=== PATIENT | female | born 1955 | race Caucasian/White ===

== ENCOUNTER 2016-10-17 01:07 | Observation (INO) | payer OTHER, MEDICARE ==
[~2016-10-17] VITALS: Ht 160 cm; Wt 86.8 kg
[~2016-10-17 01:07] MED LIST: ADVAIR HFA120 INHALA IH; ALEVE220 M2 PO; AZITHROMYCIN500 M1 PO; BREO ELLIPTA I1 EACH IH; BUPROPION HCL100 MG PO; CARDIZEM CD180 MG PO; CARDIZEM120 MG PO; COMPAZINE10 MG PO; DALIRESP500 MCG PO; DELTASONE20 M1 PO; DOCUSATE SODIU100 MG PO; DOXYCYCLINE HY100 MG PO; GAS-X80 MG PO; KLOR-CON M1010 MEQ PO; LASIX20 MG PO; LASIX40 MG PO; LOMOTIL TABLET1 EACH PO; METOPROLOL SUCC50 MG PO; MIRALAX17 GM PO; NATURAL BALANCE15 ML BOTH EYES; NICODERM CQ1 EAC2 TD; OXYGEN MC; PREDNISONE5 MG PO; PROAIR HFA8.5 GM IH; PROTONIX40 MG PO; RANITIDINE HCL300 MG PO; SPIRIVA1 INHALATI IH; THEO-24200 MG PO; THEO-DUR,THEOC200 MG PO; THEOPHYLLINE400 MG PO; TYLENOL EXTRA500 MG PO; ZOFRAN8 MG PO; [UNRECOGNIZED DRUG - OTHER] PR
[2016-10-17] MEDS ORDERED: PRAVACHOL40 MG PO (01:26)
[2016-10-17 02:01] LABS: HEMATOCRIT 36.4 % (36.0-46.0); MCH 27.6 PG (29.0-34.0); MCHC 31.6 G/DL (30.0-36.0); MCV 87.5 FL (83-99); MEAN PLAT.VOLUME 9.9 uM^3 (9.5-12.4); PLATELET COUNT 345 K/uL (156-360); RBC DIS.WIDTH-CV 14.1 % (11.8-14.6); RBC DIS.WIDTH-SD 45.5 % (39-53); RED BLOOD COUNT 4.16 M/uL (3.80-5.20); WHITE BLOOD COUNT 12.3 K/uL (4.1-10.2)
[2016-10-17 02:12] LABS: ADD MIUA? YES; BILIRUBIN NEGATIVE; BLOOD NEGATIVE; COLOR YELLOW ((YELLOW)); GLUCOSE (STRIP) NEGATIVE; KETONES NEGATIVE; LEUKOCYTES TRACE; NITRITE NEGATIVE; PROTEIN (STRIP) 30; SPECIFIC GRAVITY 1.014 (1.000-1.030); UROBILINOGEN 0.2 MG/DL (0.2-1.0)
[2016-10-17 02:16] LABS: BACTERIA NONE SEEN /HPF; EPITHELIAL CELLS 1+ /HPF; MUCUS TRACE /LPF; RED BLOOD CELLS 0-5 /HPF (0-5); UCUL ADDED? NO; WHITE BLOOD CELLS 0-5 /HPF (0-5)
[2016-10-17 02:43] LABS: CHLORIDE 101 mEq/L (99-109); POTASSIUM 4.2 mEq/L (3.7-5.4); SODIUM 141 mEq/L (136-147)
[2016-10-17 02:45] LABS: GLUCOSE 136 mg/dL (70-99)
[2016-10-17 02:47] LABS: ANION GAP 13 MEQ/L (2-14); TOTAL BILIRUBIN 0.3 mg/dL (0.0-1.0)
[2016-10-17 02:49] LABS: ALKALINE PHOSPHATASE 109 IU/L (3-129); GFR ESTIMATE (CALCULATED) > 59 mL/min/
[2016-10-17 02:50] LABS: UREA NITROGEN (BUN) 16 mg/dL (9-23)
[2016-10-17 02:52] LABS: LIPASE 31 U/L (1.0-51.0)
[2016-10-17] MEDS ORDERED: DILTIAZEM 24HR120 MG PO (08:25)
[2016-10-17] MEDS ORDERED: MONTELUKAST SOD10 MG PO (08:26)
[2016-10-17] MEDS ORDERED: PROTONIX40 MG PO (08:27)
[2016-10-17] MEDS ORDERED: PANTOPRAZOLE SO40 MG PO (08:28)
[2016-10-17] MEDS ORDERED: FLONASE16 G1 BOTH NARES (08:29)
[2016-10-17] MEDS ORDERED: ONE DAILY WOME1 EAC1 PO (08:30)
[2016-10-17] MEDS ORDERED: CALCIUM 500 +1 EACH PO (08:32)
[2016-10-17 09:50] VITALS: BP 162/75
[2016-10-17 12:52] VITALS: BP 137/63
[2016-10-17 16:23] VITALS: BP 131/85
== END 2016-10-17 16:57 | disposition home or self-care (01) ==
LOC: EME 01:07 → EDOF 06:00 → ENRESERV 06:12 → 3EAST 09:30
PROVIDERS: Emergency Medicine
DX: R10.84 Generalized abdominal pain (principal); K43.5 Parastomal hernia without obstruction or gangrene; K59.00 Constipation, unspecified; Z85.048 Personal history of other malignant neoplasm of rectum, rectosigmoid junction, and anus; Z92.21 Personal history of antineoplastic chemotherapy; J44.9 Chronic obstructive pulmonary disease, unspecified; Z99.81 Dependence on supplemental oxygen; K21.9 Gastro-esophageal reflux disease without esophagitis; D64.9 Anemia, unspecified; Z87.891 Personal history of nicotine dependence; K80.20 Calculus of gallbladder without cholecystitis without obstruction
CPT/HCPCS: 74177; 80053; 81003; 83605; 83690; 85027; 94640; 94799; 99202; G0378; J2405; J3010; J7030

== ENCOUNTER 2016-11-27 13:14 | Inpatient (IN) | payer OTHER ==
[~2016-11-27] VITALS: Ht 160 cm; Wt 87.0 kg
[~2016-11-27 13:14] MED LIST changes: +CALCIUM 500 +1 EACH PO; +DILTIAZEM 24HR120 MG PO; +FLONASE16 G1 BOTH NARES; +MONTELUKAST SOD10 MG PO; +ONE DAILY WOME1 EAC1 PO; +PANTOPRAZOLE SO40 MG PO; +PRAVACHOL40 MG PO
[2016-11-27 14:12] LABS: EOSINOPHIL (%) 0 % (0-5); HEMATOCRIT 37.8 % (36.0-46.0); IMMATURE GRANULOCYTE (%) 0.7 % (0.0-0.7); IMMATURE GRANULOCYTE COUNT 0.1 K/uL; LYMPHOCYTE COUNT 0.4 K/uL (1.0-2.8); MCH 27.4 PG (29.0-34.0); MCHC 31.5 G/DL (30.0-36.0); MCV 87.1 FL (83-99); MEAN PLAT.VOLUME 9.7 uM^3 (9.5-12.4); MONOCYTE (%) 3.9 % (3-12); MONOCYTE COUNT 0.7 K/uL (0-0.8); NEUTROPHIL (%) 92.9 % (45-76); PLATELET COUNT 333 K/uL (156-360); RBC DIS.WIDTH-CV 15.1 % (11.8-14.6); RBC DIS.WIDTH-SD 48.3 % (39-53); RED BLOOD COUNT 4.34 M/uL (3.80-5.20); WHITE BLOOD COUNT 18.3 K/uL (4.1-10.2)
[2016-11-27 14:18] LABS: PROTHROMBIN TIME 11.1 SEC (10.2-12.9)
[2016-11-27 14:20] LABS: PTT 27.6 SEC (25-37)
[2016-11-27 14:21] LABS: CHLORIDE 104 mEq/L (99-109); MAGNESIUM 2.2 mg/dL (1.3-2.7); POTASSIUM 4.2 mEq/L (3.7-5.4); SODIUM 144 mEq/L (136-147)
[2016-11-27 14:23] LABS: GLUCOSE 254 mg/dL (70-99)
[2016-11-27 14:24] LABS: ANION GAP 16 MEQ/L (2-14)
[2016-11-27 14:26] LABS: GFR ESTIMATE (CALCULATED) > 59 mL/min/
[2016-11-27 14:27] LABS: UREA NITROGEN (BUN) 20 mg/dL (9-23)
[2016-11-27 14:32] LABS: TROP-I INTERPRETATION NEGATIVE; TROPONIN-I < 0.01 ng/mL (0.0-0.30)
[2016-11-27 17:39] LABS: BASE EXCESS 2.8 mEq/L (-3 to +3); BICARBONATE 28.9 mEq/L (22-26); CARBOXY HGB 1.6 % (0-5); METHEMOGLOBIN 0.7 % (0-1.5); PCO2 50 mm Hg (35-45); PO2 115 mm Hg (80-100); pH 7.37 (7.35-7.45)
[2016-11-27 17:40] LABS: COMMENTS - BLOOD GASES +C; DEVICE NC; O2 FLOW 2.5 L/MIN; SITE LR +A; TOTAL RESP RATE 16 resp/min
[2016-11-27] MEDS ORDERED: PREDNISONE10 MG PO (18:24)
[2016-11-27] MEDS ORDERED: MUCINEX600 MG PO (18:35)
[2016-11-27 20:49] LABS: INFLUENZA A VIRAL ANTIGEN NEGATIVE; INFLUENZA B VIRAL ANTIGEN NEGATIVE
[2016-11-27 23:59] VITALS: BP 130/75
[2016-11-28 03:38] VITALS: BP 132/78
[2016-11-28 06:54] LABS: HEMATOCRIT 34.2 % (36.0-46.0); MCH 27.1 PG (29.0-34.0); MCHC 30.7 G/DL (30.0-36.0); MCV 88.1 FL (83-99); MEAN PLAT.VOLUME 9.6 uM^3 (9.5-12.4); PLATELET COUNT 307 K/uL (156-360); RBC DIS.WIDTH-CV 15.6 % (11.8-14.6); RBC DIS.WIDTH-SD 50.2 % (39-53); RED BLOOD COUNT 3.88 M/uL (3.80-5.20); WHITE BLOOD COUNT 14.2 K/uL (4.1-10.2)
[2016-11-28 07:17] LABS: ANION GAP 6 MEQ/L (2-14); CHLORIDE 104 MEQ/L (99-109); GFR ESTIMATE (CALCULATED) > 59 mL/min/; GLUCOSE 140 mg/dL (70-99); POTASSIUM 4.6 MEQ/L (3.7-5.4); SAMPLE HEMOLYSIS CHECK 0; SAMPLE ICTERIC CHECK 0; SAMPLE LIPEMIA CHECK 0; SODIUM 141 MEQ/L (136-147); THEOPHYLLINE 7.2 MCG/ML (10-20); UREA NITROGEN (BUN) 18 mg/dL (9-23)
[2016-11-28 07:28] VITALS: BP 145/81
[2016-11-28 12:33] VITALS: BP 137/78
[2016-11-28 16:14] VITALS: BP 122/69
[2016-11-28 19:20] VITALS: BP 118/60
[2016-11-29 00:14] VITALS: BP 117/65
[2016-11-29 03:44] VITALS: BP 120/67
[2016-11-29 06:09] LABS: HEMATOCRIT 34.6 % (36.0-46.0); MCH 26.7 PG (29.0-34.0); MCHC 30.6 G/DL (30.0-36.0); MCV 87.2 FL (83-99); MEAN PLAT.VOLUME 9.5 uM^3 (9.5-12.4); PLATELET COUNT 316 K/uL (156-360); RBC DIS.WIDTH-CV 15.5 % (11.8-14.6); RBC DIS.WIDTH-SD 49.2 % (39-53); RED BLOOD COUNT 3.97 M/uL (3.80-5.20); WHITE BLOOD COUNT 11.7 K/uL (4.1-10.2)
[2016-11-29 08:01] VITALS: BP 155/80
[2016-11-29 15:59] VITALS: BP 122/68
[2016-11-29 23:20] VITALS: BP 122/66
[2016-11-30 05:57] LABS: HEMATOCRIT 34.4 % (36.0-46.0); MCH 26.8 PG (29.0-34.0); MCHC 30.5 G/DL (30.0-36.0); MCV 87.8 FL (83-99); MEAN PLAT.VOLUME 9.7 uM^3 (9.5-12.4); PLATELET COUNT 302 K/uL (156-360); RBC DIS.WIDTH-CV 15.5 % (11.8-14.6); RBC DIS.WIDTH-SD 49.8 % (39-53); RED BLOOD COUNT 3.92 M/uL (3.80-5.20)
[2016-11-30 07:30] VITALS: BP 146/73
[2016-11-30 10:43] LABS: ADD MIUA? NO; BILIRUBIN NEGATIVE; BLOOD NEGATIVE; COLOR YELLOW ((YELLOW)); GLUCOSE (STRIP) NEGATIVE; KETONES NEGATIVE; LEUKOCYTES NEGATIVE; NITRITE NEGATIVE; PROTEIN (STRIP) 30; SPECIFIC GRAVITY 1.018 (1.000-1.030); UROBILINOGEN 0.2 MG/DL (0.2-1.0)
[2016-11-30] MEDS ORDERED: PREDNISONE10 MG PO (12:06)
== END 2016-11-30 14:15 | disposition home or self-care (01) | DRG 190 ==
LOC: EME 13:14 → 5SOUTH 16:58 → EDOF 16:58 → ENRESERV 17:06 → 5SOUTH 19:18
PROVIDERS: Emergency Medicine; Internal Medicine
PROC: 5A09357 Assistance with Respiratory Ventilation, Less than 24 Consecutive Hours, Continuous Positive Airway Pressure (ICD-10-PCS; principal; 2016-11-27)
DX: J44.1 Chronic obstructive pulmonary disease with (acute) exacerbation (principal); J96.21 Acute and chronic respiratory failure with hypoxia; J44.0 Chronic obstructive pulmonary disease with (acute) lower respiratory infection; J18.9 Pneumonia, unspecified organism; J98.11 Atelectasis; R91.8 Other nonspecific abnormal finding of lung field; I10 Essential (primary) hypertension; G47.33 Obstructive sleep apnea (adult) (pediatric); E78.5 Hyperlipidemia, unspecified; K21.9 Gastro-esophageal reflux disease without esophagitis; G43.909 Migraine, unspecified, not intractable, without status migrainosus; E66.9 Obesity, unspecified; K43.5 Parastomal hernia without obstruction or gangrene; Z23 Encounter for immunization; Z76.82 Awaiting organ transplant status; Z87.891 Personal history of nicotine dependence; Z99.81 Dependence on supplemental oxygen; Z93.3 Colostomy status
CPT/HCPCS: 36600; 71010; 80048; 80198; 81003; 82803; 83735; 84145 90; 84484; 85025; 85027; 85610; 85730; 87040; 87070; 87086; 87106; 87205; 87385 90; 87502; 90686; 93005; 94640; 94640 76; 94660; 94667; 94668; 94799; 99202; 99281; 99285; J0456; J0696; J1650; J2405; J2930; J7030; J7050; J7512